=== PATIENT | male | born 1955 ===

== ENCOUNTER 2022-01-28 07:04 | Day surgery (SDC) | payer MEDICARE ==
[~2022-01-28 07:04] MED LIST: LACTATED RINGERS 1,000 ML IV SCH
[2022-01-28 08:00] VITALS: TEMP 97
[2022-01-28] MEDS ORDERED: LIDOCAINE 1% (10MG/ML) FOR IV START INTRADERMA ONE (08:05)
[2022-01-28 08:15] LABS: Glucose,Whole Blood 164 mg/dL (70-110)
[2022-01-28] MEDS ORDERED: MIDAZOLAM 2 MG/2 ML VIAL ONE (08:27)
[2022-01-28] MEDS ORDERED: fentaNYL (PF) 50 MCG/ML 2 ML AMP ONE (08:27)
[2022-01-28] MEDS ORDERED: LACTATED RINGERS 1,000 ML IV SCH (08:30)
--- NOTE | 2022-01-28 09:23 | P.PCN ---
Date of Procedure: 01/28/22 Description of Procedure: Procedure: 1. Lumbar puncture for CSF collection PREOPERATIVE DIAGNOSIS: Normal pressure hydrocephalus, and balance issues POSTOPERATIVE DIAGNOSIS: Normal pressure hydrocephalus, and balance issues SURGEON: Jethro Childs ANESTHESIA: Local with 1% lidocaine, and IV sedation : Versed 2 mg, and fentanyl 100 g Sedation supervision start time: 831 Sedation supervision end time: 916 EBL: None. Specimen removed: 26 mL of total CSF in collecting tube X4 PROCEDURE INDICATION: The patient had history of patient had a history of headache, balance issues. His neurologist recommended for 30 mL of CSF removal, and opening, closing pressures . Consulted for lumbar puncture for CSF collection send it for analysis. PROCEDURE DESCRIPTION: The patient was seen and identified. Risks, benefits, complications, and alternatives were discussed with the patient. The patient agreed to proceed with the procedure and signed the consent, and vital signs were stable. Patient was taken to the procedure area, and time out was completed. The patient was placed in left lateral position on procedure. . The lumbosacral area was prepped and draped in the usual sterile fashion. Critical pause was taken. Vital signs were closely monitored during the procedure. Posterior superior iliac crest landmarks was identified . The midline lumbar space also identified. Approximately at the level of L4-L5 attempted , L3-L4 interspinous space, skin and deeper tissues were localized with 5 mL of 1% lidocaine. Using a 22 gauge 3.5 spinal needle entered into subarachnoid space. Clear CSF came out of the spinal needle. 7-8 mL of CSF fluid collected in each tube 4. Total CSF collected 26 mL. Needle was withdrawn intact, skin was cleansed, and bandages were applied. Opening pressure: 17 cm Closing pressure: 6-7 cm COMPLICATIONS: None. DISPOSITION / PLANS: The patient was placed in a supine position and transferred to the recovery area in a stable condition for observation. Patient was discharged from the recovery room after meeting discharge criteria. Home discharge instructions given to the patient by the staff. The patient was reexamined prior to discharge.
[2022-01-28] MEDS ORDERED: IV FLUID CONTINUATION 1,000 ML IV ONE (09:25)
[2022-01-28 09:28] VITALS: RESP 18
[2022-01-28 09:42] VITALS: BP 129/71; PULSE 62
[2022-01-28 14:42] LABS: Appearance,CSF Clear; CSF Tube Number 4; Nucleated Cells, CSF 0 u/L (0-5); Red Blood Cell,CSF 1 u/L (0-10)
[2022-01-28 15:34] LABS: Glucose,CSF 100 mg/dL (40-70); Total Protein,CSF 109 mg/dL (12-60)
== END 2022-01-28 10:08 | disposition home or self-care (01) ==
LOC: ORPAIN 07:04
DX: G91.2 (Idiopathic) normal pressure hydrocephalus (principal); G31.9 Degenerative disease of nervous system, unspecified; R26.89 Other abnormalities of gait and mobility; I10 Essential (primary) hypertension; E78.00 Pure hypercholesterolemia, unspecified; R51.9 Headache, unspecified; Z91.030 Bee allergy status; Z90.49 Acquired absence of other specified parts of digestive tract; Z98.1 Arthrodesis status
CPT/HCPCS: 88108; 84157; 82945; 89050; 87070; 87205; 62270; J2250; J3010; 87075; 99152; 99153

== ENCOUNTER 2024-02-08 20:39 | Inpatient (IN) | payer MEDICARE ==
--- NOTE | 2024-02-08 22:15 | ED ---
Extremity Problem HPI - General Chief complaint: Extremity Problem,Nontraumatic Stated complaint: R hand swelling Time Seen by Provider: 02/08/24 22:10 Source: patient, EMS, RN notes reviewed Mode of arrival: EMS Limitations: no limitations - History of Present Illness Initial comments: 68-year-old male presenting for medical attention for right wrist redness x 3 days. Patient states he has been having right wrist and right elbow redness, swelling, and warmth. Patient states he was seen at [facility] 3 days ago where they drained his right elbow and discharged him on antibiotics. He states symptoms have been worsening. He admits fever, chills. Denies nausea/vomiting. Past medical history includes hypertension and diabetes. Denies trauma or injury. - Related Data Home Medications Medication Instructions Recorded Confirmed Atorvastatin [Lipitor] 40 mg PO HS 01/27/22 01/27/22 Carbidopa/Levodopa 1 tab PO 0800 01/27/22 01/27/22 [Carbidopa-Levodopa 25-100 Tab] Carbidopa/Levodopa 1 tab PO 1400 01/27/22 01/27/22 [Carbidopa-Levodopa 25-100 Tab] Colestipol HCl 2 tab PO BID 01/27/22 01/27/22 Empagliflozin [Jardiance] 1 tab PO DAILY 01/27/22 01/27/22 Escitalopram [Lexapro] 5 mg PO Q48H 01/27/22 01/27/22 Escitalopram [Lexapro] 10 mg PO Q48H 01/27/22 01/27/22 Insulin Glargine,Hum.rec.anlog 54 unit SQ DAILY 01/27/22 01/27/22 [Basaglar Kwikpen U-100] Losartan Potassium 100 mg PO DAILY 01/27/22 01/27/22 Pantoprazole Sodium 40 mg PO DAILY 01/27/22 01/27/22 Unk Mens Vitamin 1 tab PO DAILY 01/27/22 01/27/22 hydrALAZINE HCL 25 mg PO BID 01/27/22 01/27/22 hydroCHLOROthiazide 50 mg PO DAILY 01/27/22 01/27/22 metFORMIN HCL 1,000 mg PO BID 01/27/22 01/27/22 Allergies Allergy/AdvReac Type Severity Reaction Status Date / Time bee venom protein (honey bee) Allergy Intermediate Swelling Verified 01/28/22 07:58 Review of Systems ROS Statement: Those systems with pertinent positive or pertinent negative responses have been documented in the HPI. ROS Other: All systems not noted in ROS Statement are negative. Past Medical History Past Medical History: Diabetes Mellitus, GERD/Reflux, Hyperlipidemia, Hypertension, Osteoarthritis (OA), Prostate Disorder Additional Past Medical History / Comment(s): parkinsons , arthritis in knees,? hydrocephalus. gait and balance off and some confusion. Bursitis right elbow History of Any Multi-Drug Resistant Organisms: None Reported Past Surgical History: Cholecystectomy Additional Past Surgical History / Comment(s): cervical fusion 4-7, Past Anesthesia/Blood Transfusion Reactions: No Reported Reaction Additional Past Anesthesia/Blood Transfusion Reaction / Comment(s): no blood transfusions Past Psychological History: Depression Smoking Status: Former smoker Past Alcohol Use History: Rare Past Drug Use History: None Reported - Past Family History Father Family Medical History: CVA/TIA, Hypertension Mother Family Medical History: Diabetes Mellitus General Exam Limitations: no limitations General appearance: alert, in no apparent distress Head exam: Present: atraumatic, normocephalic, normal inspection Respiratory exam: Present: normal lung sounds bilaterally. Absent: respiratory distress, wheezes, rales, rhonchi, stridor Cardiovascular Exam: Present: regular rate, normal rhythm, normal heart sounds. Absent: systolic murmur, diastolic murmur, rubs, gallop, clicks Right Shoulder Exam: Present: normal inspection, full ROM. Absent: tenderness, swelling Upper Arm exam: Present: normal inspection, full ROM. Absent: tenderness, swelling Elbow exam: Present: full ROM, tenderness, swelling, erythema. Absent: normal inspection (Diffuse erythema, warmth, edema on posterior right elbow with shallow, purulent ulceration) Forearm Wrist exam: Present: full ROM, tenderness, swelling. Absent: normal inspection (Diffuse erythema, warmth, edema present on dorsal aspect of right wrist. No purulence or fluctuant masses. Noncircumferential.) Vascular: Present: normal capillary refill, radial pulse (Cap refill less than 2 seconds.). Absent: vascular compromise Neurological exam: Present: alert, oriented X3 Psychiatric exam: Present: normal affect, normal mood Skin exam: Present: warm, intact, normal color Course Vital Signs 02/08/24 02/08/24 20:41 22:00 Temperature 100.1 F H Pulse Rate 89 81 Respiratory 20 16 Rate Blood Pressure 150/79 131/81 O2 Sat by Pulse 95 96 Oximetry Medical Decision Making - Medical Decision Making Was pt. sent in by a medical professional or institution (, [employer]HEL, ARTS AND HUMANITIES COUNCIL DIRECTOR, urgent care, hospital, or alf...) When possible be specific @ -Sent by [facility] Did you speak to anyone other than the patient for history (EMS, parent, family, police, friend...)? What history was obtained from this source @ -No Did you review nursing and triage notes (agree or disagree)? Why? @ -I reviewed and agree with nursing and triage notes Were old charts reviewed (outside hosp., previous admission, EMS record, old EKG, old radiological studies, urgent care reports/EKG's, alf records)? Report findings @ -No old charts were reviewed Differential Diagnosis (chest pain, altered mental status, abdominal pain women, abdominal pain men, vaginal bleeding, weakness, fever, dyspnea, syncope, headache, dizziness, GI bleed, back pain, seizure, CVA, palpatations, mental health, musculoskeletal)? @ -Differential Musculoskeletal Muscular strain, contusion, ligament sprain, fracture, arthritis, septic arthritis, bursitis, cellulitis, muscle spasm, nerve compression, DVT, arterial occlusion, herpes zoster, electrolyte abnormality, tumor.... This is not meant to be in all inclusive list EKG interpreted by me (3pts min.). @ -None X-rays interpreted by me (1pt min.). @ -None done CT interpreted by me (1pt min.). @ -None done U/S interpreted by me (1pt. min.). @ -None done What testing was considered but not performed or refused? (CT, X-rays, U/S, labs)? Why? @ -None What meds were considered but not given or refused? Why? @ -None Did you discuss the management of the patient with other professionals (professionals i.e. , [employer], ARTS AND HUMANITIES COUNCIL DIRECTOR, lab, RT, psych nurse, social media content specialist, director of cardiac cath lab, teacher, combat systems officer, case management director)? Give summary @ -Spoke with Dr. Archer who accepts admission at this time for cellulitis with failed outpatient treatment, requesting orthopedic consultation Was smoking cessation discussed for >3mins.? @ -No Was critical care preformed (if so, how long)? @ -No Were there social determinants of health that impacted care today? How? (Homelessness, low income, unemployed, alcoholism, drug addiction, transportat ion, low edu. Level, literacy, decrease access to med. care, half-way, rehab)? @ -No Was there de-escalation of care discussed even if they declined (Discuss DNR or withdrawal of care, Hospice)? DNR status @ -No What co-morbidities impacted this encounter? (DM, HTN, Smoking, COPD, CAD, Cancer, CVA, ARF, Chemo, Hep., AIDS, mental health diagnosis, sleep apnea, morbid obesity)? @ -None Was patient admitted / discharged? Hospital course, mention meds given and route, prescriptions, significant lab abnormalities, going to OR and other pertinent info. @ -Patient was admitted. This is a 68-year-old male sent by [facility] with history of hypertension and diabetes presenting for right wrist and elbow r edness x 3 days. Has been on oral antibiotics for cellulitis with worsening of symptoms. Vital signs remarkable for temperature of 100.1, otherwise within normal limits. On examination, right wrist and elbow are warm, erythematous, and edematous. Full range of motion, neurovascularly intact. Lab work remarkable for white blood cell count of 12 with left shift, lactic 2.9, CRP 4.4. Blood cultures were taken, patient was started on IV cefazolin and IV fluids. I spoke with Dr. Archer who accepts admission at this time for cellulitis with failed outpatient treatment, requesting orthopedic consultation. Patient is agreeable to plan. Case discussed with my ED attending Dr. Mercado. Undiagnosed new problem with uncertain prognosis? @ -No Drug Therapy requiring intensive monitoring for toxicity (Heparin, Nitro, Insulin, Cardizem)? @ -No Were any procedures done? @ -No Diagnosis/symptom? @ -Cellulitis of right wrist and elbow Acute, or Chronic, or Acute on Chronic? @ -Acute Uncomplicated (without systemic symptoms) or Complicated (systemic symptoms)? @ -Complicated Side effects of treatment? @ -No Exacerbation, Progression, or Severe Exacerbation? @ -No Poses a threat to life or bodily function? How? (Chest pain, [place], PR, pneumonia, PE, COPD, DKA, ARF, appy, cholecystitis, CVA, Diverticulitis, Homicidal, Suicidal, threat to staff... and all critical care pts) @ -Yes - Lab Data Result diagrams: 02/08/24 20:49 02/08/24 20:49 Lab Results 02/08/24 02/08/24 02/08/24 Range/Units 20:49 20:49 20:49 WBC 12.1 H (3.8-10.6) k/uL RBC 5.10 (4.30-5.90) m/uL Hgb 13.5 (13.0-17.5) gm/dL Hct 43.6 (39.0-53.0) % MCV 85.4 (80.0-100.0) fL MCH 26.5 (25.0-35.0) pg MCHC 31.1 (31.0-37.0) g/dL RDW 14.8 (11.5-15.5) % Plt Count 320 (150-450) k/uL MPV 8.4 Neutrophils % 75 % Lymphocytes % 14 % Monocytes % 8 % Eosinophils % 1 % Basophils % 0 % Neutrophils # 9.1 H (1.3-7.7) k/uL Lymphocytes # 1.7 (1.0-4.8) k/uL Monocytes # 1.0 (0-1.0) k/uL Eosinophils # 0.2 (0-0.7) k/uL Basophils # 0.0 (0-0.2) k/uL Hypochromasia Moderate Sodium 133 L (137-145) mmol/L Potassium 3.7 (3.5-5.1) mmol/L Chloride 98 (98-107) mmol/L Carbon Dioxide 23 (22-30) mmol/L Anion Gap 12 mmol/L BUN 14 (9-20) mg/dL Creatinine 0.70 (0.66-1.25) mg/dL Est GFR (CKD-EPI)AfAm >90 (>60 ml/min/1.73 sqM) Est GFR (CKD-EPI)NonAf >90 (>60 ml/min/1.73 sqM) Glucose 285 H (74-99) mg/dL Plasma Lactic Acid Juan David 2.9 H* (0.7-2.0) mmol/L Calcium 9.6 (8.4-10.2) mg/dL Total Bilirubin 0.5 (0.2-1.3) mg/dL AST 25 (17-59) U/L ALT 25 (4-49) U/L Alkaline Phosphatase 102 (38-126) U/L C-Reactive Protein 4.4 H (<1.0) mg/dL Total Protein 6.4 (6.3-8.2) g/dL Albumin 3.7 (3.5-5.0) g/dL Disposition Clinical Impression: Cellulitis of right upper extremity Disposition: ADMITTED IP TO THIS [facility] Referrals: Darío Yarbrough MD [Primary Care Provider] - 1-2 days Time of Disposition: 23:12
[2024-02-08] MEDS: SODIUM CHLORIDE 0.9% 1,000 ML IV STA (22:17)
[2024-02-08 22:39] LABS: Basophils % (A) 0 %; Eosinophils # (A) 0.2 k/uL (0-0.7); Eosinophils % (A) 1 %; HCT 43.6 % (39.0-53.0); HGB 13.5 gm/dL (13.0-17.5); Hypochromasia Moderate; Lymphocytes # (A) 1.7 k/uL (1.0-4.8); Lymphocytes % (A) 14 %; MCH 26.5 pg (25.0-35.0); MCHC 31.1 g/dL (31.0-37.0); MCV 85.4 fL (80.0-100.0); Mean Platelet Volume 8.4; Monocytes % (A) 8 %; Neutrophils # (A) 9.1 k/uL (1.3-7.7); Neutrophils % (A) 75 %; Platelet Count 320 k/uL (150-450); RDW 14.8 % (11.5-15.5); WBC 12.1 k/uL (3.8-10.6)
[2024-02-08 22:45] LABS: ALT 25 U/L (4-49); AST 25 U/L (17-59); African American GFR (CKD) >90 (>60 ml/min/1.73 sqM); Albumin 3.7 g/dL (3.5-5.0); Alkaline Phosphatase 102 U/L (38-126); Anion Gap 12 mmol/L; Blood Urea Nitrogen 14 mg/dL (9-20); C Reactive Protein 4.4 mg/dL (<1.0); Calcium 9.6 mg/dL (8.4-10.2); Carbon Dioxide 23 mmol/L (22-30); Chloride 98 mmol/L (98-107); Glucose 285 mg/dL (74-99); Non-African American GFR(CKD) >90 (>60 ml/min/1.73 sqM); Potassium 3.7 mmol/L (3.5-5.1); Sodium 133 mmol/L (137-145); Total Bilirubin 0.5 mg/dL (0.2-1.3); Total Protein 6.4 g/dL (6.3-8.2)
[2024-02-08] MEDS ORDERED: NALOXONE 0.4 MG/ML 1 ML VIAL IV PRN (23:12)
[2024-02-08] MEDS ORDERED: ONDANSETRON 4 MG/2 ML VIAL IVP PRN (23:12)
[2024-02-08] MEDS: SODIUM CHLORIDE 0.9% 1,000 ML IV SCH (23:45)
[2024-02-08] MEDS: ACETAMINOPHEN TAB 325 MG TAB PO PRN (23:49)
[2024-02-09 01:30] LABS: Glucose,Whole Blood 171 mg/dL (70-110)
--- NOTE | 2024-02-09 13:06 | P.CNOR ---
History of Present Illness - [facility] Consult date: 02/09/24 Consult reason: joint pain (Right elbow pain, swelling) History of present illness: This is a 68-year-old male with history of injury to his right elbow a couple of weeks ago when he fell. He resides in an extended care facility and states that he fell on the elbow and had a large abrasion. He then developed some swelling to the elbow. The elbow was aspirated in the emergency department at [facility] Last week the patient was then admitted here at [facility]. We are consulted for thick evaluation of the right elbow. He had a temp of 100.1 last evening. I blood cell count was elevated at 12.1. Past Medical History Past Medical History: Diabetes Mellitus, GERD/Reflux, Hyperlipidemia, Hypertension, Osteoarthritis (OA), Prostate Disorder Additional Past Medical History / Comment(s): parkinsons , arthritis in knees,? hydrocephalus. gait and balance off and some confusion. Bursitis right elbow History of Any Multi-Drug Resistant Organisms: None Reported Past Surgical History: Cholecystectomy Additional Past Surgical History / Comment(s): cervical fusion 4-7, Past Anesthesia/Blood Transfusion Reactions: No Reported Reaction Additional Past Anesthesia/Blood Transfusion Reaction / Comm: no blood transfusions Past Psychological History: Depression Additional Psychological History / Comment(s): on meds Smoking Status: Never smoker Past Alcohol Use History: Rare Additional Past Alcohol Use History / Comment(s): 2ppd started at 15ys old. smoked for 30 yrs Past Drug Use History: None Reported - Past Family History Father Family Medical History: CVA/TIA, Hypertension Mother Family Medical History: Diabetes Mellitus Additional Family Medical History / Comment(s): parkinsons Medications and Allergies Home Medications Medication Instructions Recorded Confirmed Type Atorvastatin [Lipitor] 40 mg PO HS 01/27/22 02/09/24 History Carbidopa/Levodopa 1 tab PO Q8H 01/27/22 02/09/24 History [Carbidopa-Levodopa 25-100 Tab] Empagliflozin [Jardiance] 10 mg PO DAILY 01/27/22 02/09/24 History Escitalopram [Lexapro] 10 mg PO HS 01/27/22 02/09/24 History Insulin Glargine,Hum.rec.anlog 54 unit SQ DAILY 01/27/22 02/09/24 History [Basaglar Kwikpen U-100] Losartan Potassium 100 mg PO DAILY 01/27/22 02/09/24 History Pantoprazole Sodium 40 mg PO DAILY 01/27/22 02/09/24 History hydrALAZINE HCL 25 mg PO BID 01/27/22 02/09/24 History 0.9 % Sodium Chloride [Sodium 10 ml IV Q12H 02/09/24 02/09/24 History Chloride Flush] 0.9 % Sodium Chloride [Sodium 10 ml IV Q12H PRN 02/09/24 02/09/24 History Chloride Flush] Acetaminophen [Tylenol 8 Hour] 650 mg PO Q6H PRN 02/09/24 02/09/24 History Amoxic-Pot Clav 875-125Mg 1 tab PO Q12HR 02/09/24 02/09/24 History [Augmentin 875-125] DULoxetine HCL [Cymbalta] 30 mg PO DAILY 02/09/24 02/09/24 History Doxycycline Monohydrate 100 mg PO BID 02/09/24 02/09/24 History EPINEPHrine (Auto Inject) [Epipen] 0.3 mg IM ONCE PRN 02/09/24 02/09/24 History L.acidoph,Paracasei, B.lactis 1 cap PO HS 02/09/24 02/09/24 History [Probiotic] Naloxone HCl [Narcan] 4 mg NASAL ONCE PRN 02/09/24 02/09/24 History Nicotine 14Mg/24Hr Patch [Habitrol 1 patch TRANSDERM DAILY 02/09/24 02/09/24 History 14Mg/24Hr Patch] QUEtiapine [SEROquel] 50 mg PO HS 02/09/24 02/09/24 History Tamsulosin HCl [Flomax] 0.4 mg PO DAILY 02/09/24 02/09/24 History cefTRIAXone SODIUM [Ceftriaxone] 2 gm IV Q24H 02/09/24 02/09/24 History hydroCHLOROthiazide [Hydrodiuril] 25 mg PO DAILY 02/09/24 02/09/24 History metFORMIN HCL [Glucophage] 1,000 mg PO BID 02/09/24 02/09/24 History oxyCODONE HCL [oxyCODONE HCL (IR)] 5 mg PO Q6H PRN 02/09/24 02/09/24 History Allergies Allergy/AdvReac Type Severity Reaction Status Date / Time bee venom protein (honey bee) Allergy Intermediate Swelling Verified 02/09/24 09:04 Physical Examination Exam of the right elbow reveals some fluctuance at the olecranon bursa. There is mild erythema. There is a healing abrasion noted to the elbow. There is no redness or swelling into the forearm, wrist or hand. He has full extension and flexion past 90 of the elbow. He has full forearm rotation. Neurovascular status to the upper extremity is intact. Results - Labs Labs: Abnormal Lab Results - Last 24 Hours (Table) 02/08/24 02/08/24 02/08/24 Range/Units 20:49 20:49 20:49 WBC 12.1 H (3.8-10.6) k/uL Neutrophils # 9.1 H (1.3-7.7) k/uL Sodium 133 L (137-145) mmol/L Glucose 285 H (74-99) mg/dL POC Glucose (mg/dL) (70-110) mg/dL Plasma Lactic Acid Juan David 2.9 H* (0.7-2.0) mmol/L C-Reactive Protein 4.4 H (<1.0) mg/dL 02/09/24 Range/Units 01:27 WBC (3.8-10.6) k/uL Neutrophils # (1.3-7.7) k/uL Sodium (137-145) mmol/L Glucose (74-99) mg/dL POC Glucose (mg/dL) 171 H (70-110) mg/dL Plasma Lactic Acid Juan David (0.7-2.0) mmol/L C-Reactive Protein (<1.0) mg/dL H & H 02/08/24 Range/Units 20:49 Hgb 13.5 (13.0-17.5) gm/dL Hct 43.6 (39.0-53.0) % Result Diagrams: 02/08/24 20:49 02/08/24 20:49 Assessment and Plan (1) Olecranon bursitis, right elbow Current Visit: Yes Status: Acute Code(s): M70.21 - OLECRANON BURSITIS, RIGHT ELBOW SNOMED Code(s): 270019419018984 (2) Cellulitis of right upper extremity Current Visit: Yes Status: Acute Code(s): L03.113 - CELLULITIS OF RIGHT UPPER LIMB SNOMED Code(s): 49011373814630288 Plan: The clinical findings are discussed with the patient. He is to continue IV antibiotics and warm compresses to the right elbow. His symptoms are improving on IV antibiotics. We will hold off on any surgical intervention at this time. We will continue to follow peripherally.
--- NOTE | 2024-02-09 16:09 | P.HPIM ---
History of Present Illness H&P Date: 02/09/24 Patient is a 68-year-old male who presents with right elbow swelling and pain. He states that he has been having difficulty with balance/weakness and recently fell. Since his fall he has had right elbow swelling and erythemahe went to [facility] (according to his ) the other day where they drained it and prescribed outpatient antibiotics. Since then the elbow has not improved so he was admitted here. He rates the pain a 6/10. He denies chest pain, shortness of breath, abdominal pain. He endorses nonbloody diarrhea since beginning the antibiotics from [facility]. WBCs 12.1, lactic acid 2.9, CRP 4.4 Afebrile, hypertensive. ED documentation reviewed. Unable to obtain records from [facility]. Review of systems: Pertinent positives and negatives as discussed in HPI, a complete review of systems was performed and all other systems are negative. Social history: Tobacco: chew tobacco occasional Alcohol: denies Recreational drugs: denies Travel: denies Occupation: retired Physical examination: Vital signs are stable. General: No acute distress. HEENT: Head exam is unremarkable. Lungs: Bilateral breath sounds present; no rhonchi, wheezes, or rales. Heart: Rate and rhythm are regular. S1S2 present. No murmurs/rubs/gallops. Abdomen: Nontender. Extremities: No edema present in the lower extremities. Right elbow: Edema of the olecranon bursa, healing abrasion present, mild swelling of the forearm, wrist, hand, full range of motion of the elbow. Assessment/Plan: #. Right elbow cellulitis Maintain IV ceftriaxone. Consult infectious disease. #. Hypertension Continue #. Diabetes mellitus type 2 Insulin sliding scale #. Non-bloody diarrhea Obtain C. difficile PCR. #. Hyperlipidemia Continue #. Parkinson's Continue carbidopalevodopa. DVT prophylaxis: Lovenox Chronic conditions: HTN, DM2, HLD, Parkinson's The patient is admitted with an anticipated plus than 2 midnight stay for evaluation of right elbow pain and swelling. CODE STATUS: Full code Discussed with: Patient Anticipated discharge place: [facility] Dr. Dave MD I have performed a history and physical examination and medical decision making of this patient, discussed the same with the the resident, and agree with the assessment and plan as written. I performed brief physical exam. Past Medical History Past Medical History: Diabetes Mellitus, GERD/Reflux, Hyperlipidemia, Hypertension, Osteoarthritis (OA), Prostate Disorder Additional Past Medical History / Comment(s): parkinsons , arthritis in knees,? hydrocephalus. gait and balance off and some confusion. Bursitis right elbow History of Any Multi-Drug Resistant Organisms: None Reported Past Surgical History: Cholecystectomy Additional Past Surgical History / Comment(s): cervical fusion 4-7, Past Anesthesia/Blood Transfusion Reactions: No Reported Reaction Additional Past Anesthesia/Blood Transfusion Reaction / Comment(s): no blood transfusions Smoking Status: Never smoker - Past Family History Father Family Medical History: CVA/TIA, Hypertension Mother Family Medical History: Diabetes Mellitus Medications and Allergies Home Medications Medication Instructions Recorded Confirmed Type Atorvastatin [Lipitor] 40 mg PO HS 01/27/22 02/09/24 History Carbidopa/Levodopa 1 tab PO Q8H 01/27/22 02/09/24 History [Carbidopa-Levodopa 25-100 Tab] Empagliflozin [Jardiance] 10 mg PO DAILY 01/27/22 02/09/24 History Escitalopram [Lexapro] 10 mg PO HS 01/27/22 02/09/24 History Insulin Glargine,Hum.rec.anlog 54 unit SQ DAILY 01/27/22 02/09/24 History [Basaglar Kwikpen U-100] Losartan Potassium 100 mg PO DAILY 01/27/22 02/09/24 History Pantoprazole Sodium 40 mg PO DAILY 01/27/22 02/09/24 History hydrALAZINE HCL 25 mg PO BID 01/27/22 02/09/24 History 0.9 % Sodium Chloride [Sodium 10 ml IV Q12H 02/09/24 02/09/24 History Chloride Flush] 0.9 % Sodium Chloride [Sodium 10 ml IV Q12H PRN 02/09/24 02/09/24 History Chloride Flush] Acetaminophen [Tylenol 8 Hour] 650 mg PO Q6H PRN 02/09/24 02/09/24 History Amoxic-Pot Clav 875-125Mg 1 tab PO Q12HR 02/09/24 02/09/24 History [Augmentin 875-125] DULoxetine HCL [Cymbalta] 30 mg PO DAILY 02/09/24 02/09/24 History Doxycycline Monohydrate 100 mg PO BID 02/09/24 02/09/24 History EPINEPHrine (Auto Inject) [Epipen] 0.3 mg IM ONCE PRN 02/09/24 02/09/24 History L.acidoph,Paracasei, B.lactis 1 cap PO HS 02/09/24 02/09/24 History [Probiotic] Naloxone HCl [Narcan] 4 mg NASAL ONCE PRN 02/09/24 02/09/24 History Nicotine 14Mg/24Hr Patch [Habitrol 1 patch TRANSDERM DAILY 02/09/24 02/09/24 History 14Mg/24Hr Patch] QUEtiapine [SEROquel] 50 mg PO HS 02/09/24 02/09/24 History Tamsulosin HCl [Flomax] 0.4 mg PO DAILY 02/09/24 02/09/24 History cefTRIAXone SODIUM [Ceftriaxone] 2 gm IV Q24H 02/09/24 02/09/24 History hydroCHLOROthiazide [Hydrodiuril] 25 mg PO DAILY 02/09/24 02/09/24 History metFORMIN HCL [Glucophage] 1,000 mg PO BID 02/09/24 02/09/24 History oxyCODONE HCL [oxyCODONE HCL (IR)] 5 mg PO Q6H PRN 02/09/24 02/09/24 History Allergies Allergy/AdvReac Type Severity Reaction Status Date / Time bee venom protein (honey bee) Allergy Intermediate Swelling Verified 02/09/24 09:04 Physical Exam Vitals: Vital Signs Temp Pulse Pulse Resp BP BP Pulse Ox 02/09/24 02:25 98.5 F 75 18 148/71 95 02/09/24 02:03 98.1 F 02/09/24 02:02 73 19 153/82 98 02/09/24 01:32 76 20 153/81 96 02/09/24 00:51 98.9 F 02/08/24 23:59 81 20 151/78 97 02/08/24 23:00 84 15 117/70 98 02/08/24 22:00 81 16 131/81 96 02/08/24 20:41 100.1 F H 89 20 150/79 95 Intake and Output 02/08/24 02/08/24 02/09/24 14:59 22:59 06:59 Intake Total 240 Balance 240 Intake: Oral 240 Other: # Voids 2 Weight 88.36 kg 88.36 kg Results CBC & Chem 7: 02/10/24 07:52 02/10/24 07:52 Labs: Abnormal Lab Results - Last 24 Hours (Table) 02/08/24 02/08/24 02/08/24 Range/Units 20:49 20:49 20:49 WBC 12.1 H (3.8-10.6) k/uL Neutrophils # 9.1 H (1.3-7.7) k/uL Sodium 133 L (137-145) mmol/L Glucose 285 H (74-99) mg/dL POC Glucose (mg/dL) (70-110) mg/dL Plasma Lactic Acid Juan David 2.9 H* (0.7-2.0) mmol/L C-Reactive Protein 4.4 H (<1.0) mg/dL 02/09/24 Range/Units 01:27 WBC (3.8-10.6) k/uL Neutrophils # (1.3-7.7) k/uL Sodium (137-145) mmol/L Glucose (74-99) mg/dL POC Glucose (mg/dL) 171 H (70-110) mg/dL Plasma Lactic Acid Juan David (0.7-2.0) mmol/L C-Reactive Protein (<1.0) mg/dL
[2024-02-09] MEDS: CARBIDOPA-LEVODOPA 25-100 MG 1 EACH TAB PO SCH (17:08)
[2024-02-09] MEDS: LOSARTAN 50 MG TAB PO SCH (17:09)
[2024-02-09] MEDS: TAMSULOSIN 0.4 MG CAP.ER.24H PO SCH (17:09)
[2024-02-09] MEDS: hydroCHLOROthiazide 25 MG TAB PO SCH (17:10)
--- NOTE | 2024-02-09 19:07 | XR ---
EXAMINATION TYPE: XR shoulder complete LT DATE OF EXAM: 02/09/2024 CLINICAL HISTORY: pain COMPARISON: NONE TECHNIQUE: Three views of the left shoulder are obtained. FINDINGS: There is no acute fracture/dislocation evident. The acromioclavicular and glenohumeral tutu int spaces appear within normal limits. The visualized ribs are intact and unremarkable. IMPRESSION: 1. There is no acute fracture or dislocation. ICD 10 NO FRACTURE, INITIAL EVALUATION
--- NOTE | 2024-02-09 19:56 | CT ---
EXAMINATION TYPE: CT brain wo con DATE OF EXAM: 02/09/2024 COMPARISON: None HISTORY: fell CT DLP: [address] of the brain was performed. The ventricles, basal cisterns and sulci overlying the cerebral convexities demonstrate moderate enla rgement. There is no evidence for intracranial hemorrhage or sulcal effacement. There is decreased attenuation about the periventricular white matter and deep white matter of both c erebral hemispheres, compatible with chronic small vessel ischemia. Differential diagnosis does inclu de demyelination. No mass effects are seen.No midline shift. Osseous calvarium is intact. If symptoms persist consider MRI. IMPRESSION: 1. Age related atrophic and chronic small vessel ischemic change without acute intracranial process s een at this time.
[2024-02-09] MEDS: ENOXAPARIN 40 MG/0.4 ML SYRINGE SQ SCH (20:33)
[2024-02-09] MEDS: QUEtiapine 50 MG TAB PO SCH (20:34)
[2024-02-09] MEDS: hydrALAZINE HCL 25 MG TAB PO SCH (20:34)
[2024-02-09] MEDS: ESCITALOPRAM 10 MG TAB PO SCH (20:35)
[2024-02-09] MEDS: ATORVASTATIN 40 MG TAB PO SCH (20:35)
--- NOTE | 2024-02-09 22:36 | P.CONS ---
History of Present Illness - Reason for Consult Consult date: 02/09/24 Right elbow infection not healing Requesting physician: Maria D Carlson - Chief Complaint Right elbow pain and swelling x days - History of Present Illness Patient is a 68-year-old male with a past medical history significant for diabetes mellitus hypertension hyperlipidemia reflux osteoarthritis prostate disorder in this patient apparently was recently admitted at [facility] from 01/30/2024 till 02/02/2024 with the patient has been treated for UTI he was also diagnosed with a right elbow olecranon bursitis status post bedside aspiration by the hospitalist and the patient was subsequent discharged home on oral Augmentin and doxycycline patient now presenting to [facility] ER complaining of worsening pain to the right elbow area patient describing the pain to the right elbow to be sharp almost 10 out of 10 in severity by the time he presented to hospital with associated swelling and redness but denies having any drainage patient mention he has been taking his antibiotic as advised patient on presentation to the hospital did have low-grade fever 100.1 F patient was not tachycardic hypotensive or hypoxic he did have white count of 12.1 with a left shift creatinine 0.70 lactic acid 2.9 liver isms are normal patient did receive a dose of cefazolin and admitted to hospital infectious he was consulted for further management of antibiotic therapy patient has been eval by orthopedics not recommending any surgical intervention at this point Review of Systems Positive point and negatives has been mentioned in the HPI, complete review of systems was performed and all other systems are negative Past Medical History Past Medical History: Diabetes Mellitus, GERD/Reflux, Hyperlipidemia, Hypertension, Osteoarthritis (OA), Prostate Disorder Additional Past Medical History / Comment(s): parkinsons , arthritis in knees,? hydrocephalus. gait and balance off and some confusion. Bursitis right elbow History of Any Multi-Drug Resistant Organisms: None Reported Past Surgical History: Cholecystectomy Additional Past Surgical History / Comment(s): cervical fusion 4-7, Past Anesthesia/Blood Transfusion Reactions: No Reported Reaction Additional Past Anesthesia/Blood Transfusion Reaction / Comm: no blood transfusi ons Smoking Status: Never smoker - Past Family History Father Family Medical History: CVA/TIA, Hypertension Mother Family Medical History: Diabetes Mellitus Additional Family Medical History / Comment(s): parkinsons Medications and Allergies Home Medications Medication Instructions Recorded Confirmed Type Atorvastatin [Lipitor] 40 mg PO HS 01/27/22 02/09/24 History Carbidopa/Levodopa 1 tab PO Q8H 01/27/22 02/09/24 History [Carbidopa-Levodopa 25-100 Tab] Empagliflozin [Jardiance] 10 mg PO DAILY 01/27/22 02/09/24 History Escitalopram [Lexapro] 10 mg PO HS 01/27/22 02/09/24 History Insulin Glargine,Hum.rec.anlog 54 unit SQ DAILY 01/27/22 02/09/24 History [Basaglar Kwikpen U-100] Losartan Potassium 100 mg PO DAILY 01/27/22 02/09/24 History Pantoprazole Sodium 40 mg PO DAILY 01/27/22 02/09/24 History hydrALAZINE HCL 25 mg PO BID 01/27/22 02/09/24 History 0.9 % Sodium Chloride [Sodium 10 ml IV Q12H 02/09/24 02/09/24 History Chloride Flush] 0.9 % Sodium Chloride [Sodium 10 ml IV Q12H PRN 02/09/24 02/09/24 History Chloride Flush] Acetaminophen [Tylenol 8 Hour] 650 mg PO Q6H PRN 02/09/24 02/09/24 History Amoxic-Pot Clav 875-125Mg 1 tab PO Q12HR 02/09/24 02/09/24 History [Augmentin 875-125] DULoxetine HCL [Cymbalta] 30 mg PO DAILY 02/09/24 02/09/24 History Doxycycline Monohydrate 100 mg PO BID 02/09/24 02/09/24 History EPINEPHrine (Auto Inject) [Epipen] 0.3 mg IM ONCE PRN 02/09/24 02/09/24 History L.acidoph,Paracasei, B.lactis 1 cap PO HS 02/09/24 02/09/24 History [Probiotic] Naloxone HCl [Narcan] 4 mg NASAL ONCE PRN 02/09/24 02/09/24 History Nicotine 14Mg/24Hr Patch [Habitrol 1 patch TRANSDERM DAILY 02/09/24 02/09/24 History 14Mg/24Hr Patch] QUEtiapine [SEROquel] 50 mg PO HS 02/09/24 02/09/24 History Tamsulosin HCl [Flomax] 0.4 mg PO DAILY 02/09/24 02/09/24 History cefTRIAXone SODIUM [Ceftriaxone] 2 gm IV Q24H 02/09/24 02/09/24 History hydroCHLOROthiazide [Hydrodiuril] 25 mg PO DAILY 02/09/24 02/09/24 History metFORMIN HCL [Glucophage] 1,000 mg PO BID 02/09/24 02/09/24 History oxyCODONE HCL [oxyCODONE HCL (IR)] 5 mg PO Q6H PRN 02/09/24 02/09/24 History Allergies Allergy/AdvReac Type Severity Reaction Status Date / Time bee venom protein (honey bee) Allergy Intermediate Swelling Verified 02/09/24 09:04 Physical Exam Vitals: Vital Signs Temp Pulse Pulse Pulse Resp BP BP 02/09/24 08:00 18 02/09/24 07:00 97.7 F 70 18 172/82 02/09/24 02:25 98.5 F 75 18 148/71 02/09/24 02:03 98.1 F 02/09/24 02:02 73 19 153/82 02/09/24 01:32 76 20 153/81 02/09/24 00:51 98.9 F 02/08/24 23:59 81 20 151/78 02/08/24 23:00 84 15 117/70 02/08/24 22:00 81 16 131/81 02/08/24 20:41 100.1 F H 89 20 150/79 Pulse Ox 02/09/24 08:00 02/09/24 07:00 97 02/09/24 02:25 95 02/09/24 02:03 02/09/24 02:02 98 02/09/24 01:32 96 02/09/24 00:51 02/08/24 23:59 97 02/08/24 23:00 98 02/08/24 22:00 96 02/08/24 20:41 95 Intake and Output 02/08/24 02/09/24 02/09/24 22:59 06:59 14:59 Intake Total 240 120 Output Total 300 Balance 240 -180 Intake: Oral 240 120 Output: Urine 300 Other: Voiding Method Urinal Diaper # Voids 2 1 # Bowel Movements 2 Weight 88.36 kg 88.36 kg GENERAL DESCRIPTION: Elderly male lying in bed, no distress. No tachypnea or accessory muscle of respiration use. HEENT: Shows Pallor , no scleral icterus. Oral mucous membrane is dry. No pharyngeal erythema or thrush NECK: Trachea central, no thyromegaly. LUNGS: Unlabored breathing. Clear to auscultation anteriorly. No wheeze or crackle. HEART: S1, S2, regular rate and rhythm. No loud murmur ABDOMEN: Soft, no tenderness , guarding or rigidity, no organomegaly EXTREMITIES: Right elbow did have swelling redness which is warm and tender to touch SKIN: No rash, no masses palpable. NEUROLOGICAL: The patient is awake, alert, oriented x3, mood and affect normal. Results CBC & Chem 7: 02/08/24 20:49 02/08/24 20:49 Labs: Abnormal Lab Results - Last 24 Hours (Table) 02/08/24 02/08/24 02/08/24 Range/Units 20:49 20:49 20:49 WBC 12.1 H (3.8-10.6) k/uL Neutrophils # 9.1 H (1.3-7.7) k/uL Sodium 133 L (137-145) mmol/L Glucose 285 H (74-99) mg/dL POC Glucose (mg/dL) (70-110) mg/dL Plasma Lactic Acid Juan David 2.9 H* (0.7-2.0) mmol/L C-Reactive Protein 4.4 H (<1.0) mg/dL 02/09/24 Range/Units 01:27 WBC (3.8-10.6) k/uL Neutrophils # (1.3-7.7) k/uL Sodium (137-145) mmol/L Glucose (74-99) mg/dL POC Glucose (mg/dL) 171 H (70-110) mg/dL Plasma Lactic Acid Juan David (0.7-2.0) mmol/L C-Reactive Protein (<1.0) mg/dL Assessment and Plan (1) Cellulitis of right upper extremity Current Visit: Yes Status: Acute Code(s): L03.113 - CELLULITIS OF RIGHT UPPER LIMB SNOMED Code(s): 51331574157809188 (2) Olecranon bursitis, right elbow Current Visit: Yes Status: Acute Code(s): M70.21 - OLECRANON BURSITIS, RIGHT ELBOW SNOMED Code(s): 504981996179040 (3) Failure of outpatient treatment Current Visit: Yes Status: Acute Code(s): Z78.9 - OTHER SPECIFIED HEALTH STATUS SNOMED Code(s): 415023129 (4) MSSA (methicillin susceptible Staphylococcus aureus) infection Current Visit: Yes Status: Acute Code(s): A49.01 - METHICILLIN SUSCEP STAPH INFECTION, UNSP SITE SNOMED Code(s): 391003346 Plan: 1patient presented to hospital with right elbow pain swelling redness which is likely related to right elbow olecranon bursitis that has been drained at [facility] during his admission from 01/29 through 02/02/2024 I was able to review the culture and they have been growing MSSA patient seem to have failed outpatient oral antibiotic therapy 2-we will start the patient on cefazolin 2 g every 8 hour 3-will benefit from surgical I&D We will follow on clinical condition and cultures to further adjust medication if needed Thank you for this consultation we will follow the patient along with you Dictation was produced using [employer] dictation software. please excuse any grammatical, word or spelling errors.
[2024-02-10] MEDS: PANTOPRAZOLE 40 MG TABLET PO SCH (06:10)
[2024-02-10 08:19] LABS: Glucose,Whole Blood 170 mg/dL (70-110)
[2024-02-10] MEDS: DULoxetine HCL 30 MG CAPSULE.DR PO SCH (08:40)
[2024-02-10] MEDS: DAPAGLIFLOZIN PROPANEDIOL 5 MG TABLET PO SCH (08:40)
[2024-02-10 10:20] LABS: Basophils # (A) 0.05 X 10*3/uL (0.00-0.10); Basophils % (A) 0.5 %; Eosinophils # (A) 0.36 X 10*3/uL (0.04-0.35); Eosinophils % (A) 3.5 %; HCT 46.7 % (39.6-50.0); HGB 14.9 g/dL (13.0-17.0); Lymphocytes # (A) 2.04 X 10*3/uL (0.90-5.00); Lymphocytes % (A) 19.7 %; MCH 26.4 pg (27.0-32.0); MCHC 31.9 g/dL (32.0-37.0); MCV 82.7 FL (80.0-97.0); Mean Platelet Volume 11.1 FL (9.5-12.2); Monocytes # (A) 0.74 X 10*3/uL (0.20-1.00); Monocytes % (A) 7.2 %; NRBC Per 100 WBC 0 X 10*3/uL (0.00-0.01); Neutrophils # (A) 7.11 X 10*3/uL (1.80-7.70); Neutrophils % (A) 68.8 %; Platelet Count 321 X 10*3/uL (140-440); RBC 5.65 X 10*6/uL (4.40-5.60); RDW 14.6 % (11.5-14.5); WBC 10.33 X 10*3/uL (4.50-10.00)
[2024-02-10 11:00] LABS: ALT 25 U/L (10-49); AST 31 U/L (14-35); Albumin 4.1 g/dL (3.8-4.9); Albumin/Globulin Ratio 1.32 Ratio (1.60-3.17); Alkaline Phosphatase 129 U/L (41-126); BUN/Creat Ratio 13.86 Ratio (12.00-20.00); Blood Urea Nitrogen 9.7 mg/dL (9.0-27.0); Carbon Dioxide 25.6 mmol/L (21.6-31.8); Chloride 103 mmol/L (96-109); Globulin 3.1 g/dL (1.6-3.3); Glucose 193 mg/dL (70-110); Potassium 4.1 mmol/L (3.5-5.5); Sodium 141 mmol/L (135-145); Total Bilirubin 0.3 mg/dL (0.3-1.2); Total Protein 7.2 g/dL (6.2-8.2)
--- NOTE | 2024-02-10 12:05 | P.PN ---
Subjective Progress Note Date: 02/10/24 Patient is a 68-year-old male who presents with right elbow swelling and pain. He states that he has been having difficulty with balance/weakness and recently fell. Since his fall he has had right elbow swelling and erythemahe went to [facility] (according to his ) the other day where they drained it and prescribed outpatient antibiotics. Since then the elbow has not improved so he was admitted here. He rates the pain a 6/10. He denies chest pain, shortness of breath, abdominal pain. He endorses nonbloody diarrhea since beginning the antibiotics from [facility]. WBCs 12.1, lactic acid 2.9, CRP 4.4 Afebrile, hypertensive. 02/09. Patient seen and examined lying in bed. Per infectious disease consult: Patient had right elbow olecranon bursitis drained bedside at [facility]; cultures grew MSSA but patient seems to have failed outpatient oral antibiotic therapy so he was started on IV cefazolin 2 g every 8 hours. Patient denies chest pain, shortness of breath. Continues to endorse full range of motion. Patient remains afebrile. WBCs 10.33 ROS reviewed. Pertinent positives and negatives discussed above, a complete review of systems was performed and all the other systems were negative. Vital signs are stable. General: No acute distress. HEENT: Head exam is unremarkable. Lungs: Bilateral breath sounds present; no rhonchi, wheezes, or rales. Heart: Rate and rhythm are regular. Abdomen: Nontender. Extremities: No edema present. Assessment/Plan: Cellulitis of the right elbow Right olecranon bursitis Continue IV cefazolin 2 g every 8 hours Monitor CBC/BMP Pain control Hypertension Continue hydralazine Continue hydrochlorothiazide Continue Cozaar Diabetes mellitus type 2 Continue Farxiga Insulin sliding scale Hyperlipidemia Continue Lipitor Parkinson's Continue carbidopa/levodopa discharge Continue Cymbalta Continue Seroquel Continue Lexapro Dr. Dave MD I have performed a history and physical examination and medical decision making of this patient, discussed the same with the the resident, and agree with the assessment and plan as written. I performed brief physical exam. Objective - Vital Signs Vital signs: Vital Signs Temp 97.7 F 02/10/24 02:00 Pulse 75 02/10/24 02:00 Resp 18 02/10/24 02:00 BP 123/68 02/10/24 02:00 Pulse Ox 96 02/10/24 02:00 FiO2 Intake & Output 02/09/24 02/10/24 02/10/24 18:59 06:59 18:59 Intake Total 577 480 Output Total 500 Balance 77 480 Intake: Oral 577 480 Output: Urine 500 Other: Voiding Method Urinal Urinal Diaper Diaper # Voids 1 3 # Bowel Movements 1 0 - Labs CBC & Chem 7: 02/11/24 02:52 02/11/24 02:52 Labs: Microbiology - Last 24 Hours (Table) 02/08/24 22:32 Blood Culture - Preliminary Blood 02/08/24 22:17 Blood Culture - Preliminary Blood
--- NOTE | 2024-02-10 14:15 | P.PN ---
Subjective Progress Note Date: 02/10/24 Principal diagnosis: Right elbow pain. Olecranon bursitis right elbow. This is a 68-year-old male with history of injury to his right elbow a couple of weeks ago when he fell. He resides in an extended care facility and states that he fell on the elbow and had a large abrasion. He then developed some swelling to the elbow. The elbow was aspirated in the emergency department at [facility] Last week the patient was then admitted here at [facility]. We are consulted for orthopedic evaluation of the right elbow. He had a temp of 100.1 last evening. I blood cell count was elevated at 12.1. 02/10/2024: The patient is evaluated at bedside today with Dr. Gomez. The patient has no new complaints or concerns today. He states that his pain is improving. He fee ls that his swelling is improving to the right upper extremity. Vital signs are stable. He is currently afebrile. White blood cell count is coming down. Objective - Vital Signs Vital signs: Vital Signs Temp 98.4 F 02/10/24 07:00 Pulse 81 02/10/24 07:00 Resp 18 02/10/24 07:00 BP 162/77 02/10/24 07:00 Pulse Ox 98 02/10/24 07:00 FiO2 Intake & Output 02/09/24 02/10/24 02/10/24 18:59 06:59 18:59 Intake Total 577 480 240 Output Total 500 Balance 77 480 240 Intake: Oral 577 480 240 Output: Urine 500 Other: Voiding Method Urinal Urinal Diaper Diaper Diaper # Voids 1 3 # Bowel Movements 1 0 - Exam This is a pleasant 68-year-old male in no acute distress. He is alert and oriented x 3. Exam of the right upper extremity reveals that the swelling to the elbow and forearm are improved. He has no swelling to the wrist or hand. He has full extension and flexion of the elbow as well as full forearm rotation without difficulty or pain. There is slight fluctuance to the olecranon bursa. There is minimal erythema. The erythema has subsided since yesterday. - Labs CBC & Chem 7: 02/10/24 07:52 02/10/24 07:52 Labs: Abnormal Lab Results - Last 24 Hours (Table) 02/10/24 02/10/2424 Range/Units 07:52 07:52 08:17 WBC 10.33 H (4.50-10.00) X 10*3/uL RBC 5.65 H (4.40-5.60) X 10*6/uL MCH 26.4 L (27.0-32.0) pg MCHC 31.9 L (32.0-37.0) g/dL RDW 14.6 H (11.5-14.5) % Eosinophils # 0.36 H (0.04-0.35) X 10*3/uL Anion Gap 12.40 H (4.00-12.00) mmol/L Glucose 193 H (70-110) mg/dL POC Glucose (mg/dL) 170 H (70-110) mg/dL Alkaline Phosphatase 129 H (41-126) U/L Albumin/Globulin Ratio 1.32 L (1.60-3.17) Ratio Microbiology - Last 24 Hours (Table) 02/08/24 22:32 Blood Culture - Preliminary Blood 02/08/24 22:17 Blood Culture - Preliminary Blood Assessment and Plan (1) Olecranon bursitis, right elbow Current Visit: Yes Status: Acute Code(s): M70.21 - OLECRANON BURSITIS, RIGHT ELBOW SNOMED Code(s): 150072364287019 (2) Cellulitis of right upper extremity Current Visit: Yes Status: Acute Code(s): L03.113 - CELLULITIS OF RIGHT UPPER LIMB SNOMED Code(s): 69441091441579753 Plan: The clinical findings are discussed with the patient. He is to continue IV antibiotics and warm compresses to the right elbow. His symptoms are improving on IV antibiotics. Dr. Gomez discussed with the patient that there is no surgical indication at this time since he is improving. We discussed the risks of surgical debridement including prolonged drainage of the wound and other wound complications. The patient is to follow-up in our office 1 week after discharge.
--- NOTE | 2024-02-10 16:01 | P.PN ---
Subjective Progress Note Date: 02/10/24 Principal diagnosis: Reason for follow-up is right elbow olecranon bursitis Patient is a 68-year-old male with a past medical history significant for diabetes mellitus hypertension hyperlipidemia reflux osteoarthritis prostate disorder in this patient apparently was recently admitted at [facility] from 01/30/2024 till 02/02/2024 with the patient has been treated for UTI he was also diagnosed with a right elbow olecranon bursitis status post bedside aspiration by the hospitalist, has not been readmitted to hospital with worsening right olecranon bursitis failing outpatient or antibiotic therapy. On today's evaluation that is 02/10/2024,the patient remains to be afebrile, patient is on room air not requiring supplemental oxygen and denies any shortness of breath no chest pain or cough.Patient denies having any nausea or vomiting, no abdominal pain and no diarrhea, the patient pain to the right elbow has decreased in intensity. Patient white count is 10.33, creatinine 0.7 blood cultures pending Objective - Vital Signs Vital signs: Vital Signs Temp 98.4 F 02/10/24 07:00 Pulse 81 02/10/24 07:00 Resp 18 02/10/24 07:00 BP 162/77 02/10/24 07:00 Pulse Ox 98 02/10/24 07:00 FiO2 Intake & Output 02/09/24 02/10/24 02/10/24 18:59 06:59 18:59 Intake Total 577 480 240 Output Total 500 Balance 77 480 240 Intake: Oral 577 480 240 Output: Urine 500 Other: Voiding Method Urinal Urinal Diaper Diaper Diaper # Voids 1 3 # Bowel Movements 1 0 - Exam GENERAL DESCRIPTION: An elderly male lying in bed in no distress RESPIRATORY SYSTEM: Unlabored breathing , decreased breath sounds at bases HEART: S1 S2 regular rate and rhythm , ABDOMEN: Soft , no tenderness EXTREMITIES: Right elbow swelling redness slightly decreased - Labs CBC & Chem 7: 02/10/24 07:52 02/10/24 07:52 Labs: Abnormal Lab Results - Last 24 Hours (Table) 02/10/24 02/10/24 02/10/24 Range/Units 07:52 07:52 08:17 WBC 10.33 H (4.50-10.00) X 10*3/uL RBC 5.65 H (4.40-5.60) X 10*6/uL MCH 26.4 L (27.0-32.0) pg MCHC 31.9 L (32.0-37.0) g/dL RDW 14.6 H (11.5-14.5) % Eosinophils # 0.36 H (0.04-0.35) X 10*3/uL Anion Gap 12.40 H (4.00-12.00) mmol/L Glucose 193 H (70-110) mg/dL POC Glucose (mg/dL) 170 H (70-110) mg/dL Alkaline Phosphatase 129 H (41-126) U/L Albumin/Globulin Ratio 1.32 L (1.60-3.17) Ratio Microbiology - Last 24 Hours (Table) 02/08/24 22:32 Blood Culture - Preliminary Blood 02/08/24 22:17 Blood Culture - Preliminary Blood Assessment and Plan (1) Cellulitis of right upper extremity Current Visit: Yes Status: Acute Code(s): L03.113 - CELLULITIS OF RIGHT UPPER LIMB SNOMED Code(s): 20469345364388287 (2) Olecranon bursitis, right elbow Current Visit: Yes Status: Acute Code(s): M70.21 - OLECRANON BURSITIS, RIGHT ELBOW SNOMED Code(s): 704220518136660 (3) Failure of outpatient treatment Current Visit: Yes Status: Acute Code(s): Z78.9 - OTHER SPECIFIED HEALTH STATUS SNOMED Code(s): 290189811 (4) MSSA (methicillin susceptible Staphylococcus aureus) infection Current Visit: Yes Status: Acute Code(s): A49.01 - METHICILLIN SUSCEP STAPH INFECTION, UNSP SITE SNOMED Code(s): 608947096 Plan: 1patient presented to hospital with right elbow pain swelling redness which is likely related to right elbow olecranon bursitis that has been drained at [facility] during his admission from 01/29 through 02/02/2024 I was able to review the culture and they have been growing MSSA patient seem to have failed outpatient oral antibiotic therapy 2-patient did have some improvement with cefazolin 2 g every 8 hour to continue may need IV antibiotic if no improvement over the weekend and no surgical drainage at the bedside question concern answered Dictation was produced using dragon dictation software. please excuse any grammatical, word or spelling errors. Time with Patient: Less than 30
[2024-02-10 17:25] LABS: Glucose,Whole Blood 187 mg/dL (70-110)
[2024-02-10] MEDS: INSULIN ASPART (NovoLOG) 100 UNIT/ML VIAL SQ SCH (18:03)
[2024-02-10] MEDS: NYSTATIN 100,000 UNIT/GM POWD 15 GM TOPICAL SCH (18:03)
[2024-02-10 20:34] LABS: Glucose,Whole Blood 261 mg/dL (70-110)
[2024-02-11 05:49] LABS: Glucose,Whole Blood 223 mg/dL (70-110)
[2024-02-11 09:33] LABS: Basophils # (A) 0.06 X 10*3/uL (0.00-0.10); Basophils % (A) 0.6 %; Eosinophils # (A) 0.34 X 10*3/uL (0.04-0.35); Eosinophils % (A) 3.7 %; HCT 40.8 % (39.6-50.0); Lymphocytes # (A) 2.66 X 10*3/uL (0.90-5.00); Lymphocytes % (A) 28.6 %; MCH 26.8 pg (27.0-32.0); MCHC 31.9 g/dL (32.0-37.0); MCV 84.1 FL (80.0-97.0); Mean Platelet Volume 11.6 FL (9.5-12.2); Monocytes # (A) 0.79 X 10*3/uL (0.20-1.00); Monocytes % (A) 8.5 %; NRBC Per 100 WBC 0 X 10*3/uL (0.00-0.01); Neutrophils # (A) 5.41 X 10*3/uL (1.80-7.70); Neutrophils % (A) 58.3 %; Platelet Count 236 X 10*3/uL (140-440); RBC 4.85 X 10*6/uL (4.40-5.60); RDW 14.8 % (11.5-14.5); WBC 9.29 X 10*3/uL (4.50-10.00)
[2024-02-11 10:52] LABS: ALT 24 U/L (10-49); AST 33 U/L (14-35); Albumin 3.5 g/dL (3.8-4.9); Alkaline Phosphatase 117 U/L (41-126); BUN/Creat Ratio 19.57 Ratio (12.00-20.00); Blood Urea Nitrogen 13.7 mg/dL (9.0-27.0); Calcium 9.2 mg/dL (8.7-10.3); Carbon Dioxide 23.4 mmol/L (21.6-31.8); Chloride 104 mmol/L (96-109); Globulin 2.5 g/dL (1.6-3.3); Glucose 249 mg/dL (70-110); Potassium 4.2 mmol/L (3.5-5.5); Sodium 138 mmol/L (135-145); Total Bilirubin <0.2 mg/dL (0.3-1.2)
--- NOTE | 2024-02-11 11:27 | P.PN ---
Subjective Progress Note Date: 02/11/24 Patient is a 68-year-old male who presents with right elbow swelling and pain. He states that he has been having difficulty with balance/weakness and recently fell. Since his fall he has had right elbow swelling and erythemahe went to [facility] (according to his ) the other day where they drained it and prescribed outpatient antibiotics. Since then the elbow has not improved so he was admitted here. He rates the pain a 6/10. He denies chest pain, shortness of breath, abdominal pain. He endorses nonbloody diarrhea since beginning the antibiotics from [facility]. WBCs 12.1, lactic acid 2.9, CRP 4.4 Afebrile, hypertensive. 02/09. Patient seen and examined lying in bed. Per infectious disease consult: Patient had right elbow olecranon bursitis drained bedside at [facility]; cultures grew MSSA but patient seems to have failed outpatient oral antibiotic therapy so he was started on IV cefazolin 2 g every 8 hours. Patient denies chest pain, shortness of breath. Continues to endorse full range of motion. Patient remains afebrile. WBCs 10.33 02/10. Patient seen lying comfortably in bed. He remains on IV cefazolin 2 g every 8 hours. He continues to endorse full range of motion. He is afebrile. Reports improved diarrhea. C.difficile is negative. WBCs 9.2. ROS reviewed. Pertinent positives and negatives discussed above, a complete review of systems was performed and all the other systems were negative. Vital signs are stable. General: No acute distress. HEENT: Head exam is unremarkable. Lungs: Bilateral breath sounds present; no rhonchi, wheezes, or rales. Heart: Rate and rhythm are regular. Abdomen: Nontender. Extremities: No edema present. Assessment/Plan: Cellulitis of the right elbow Right olecranon bursitis Continue IV cefazolin 2 g every 8 hours Pending further infectious disease recommendations Pain control Hypertension Continue hydralazine Continue hydrochlorothiazide Continue Cozaar Diabetes mellitus type 2 Continue Farxiga Insulin sliding scale Hyperlipidemia Continue Lipitor Parkinson's Continue carbidopa/levodopa discharge Continue Cymbalta Continue Seroquel Continue Lexapro Dr. Dave MD I have performed a history and physical examination and medical decision making of this patient, discussed the same with the the resident, and agree with the assessment and plan as written. I performed brief physical exam. Objective - Vital Signs Vital signs: Vital Signs Temp 98.7 F 02/11/24 07:00 Pulse 68 02/11/24 07:00 Resp 16 02/11/24 07:00 BP 174/84 02/11/24 07:00 Pulse Ox 95 02/11/24 07:00 FiO2 Intake & Output 02/10/24 02/11/24 02/11/24 18:59 06:59 18:59 Intake Total 240 118 118 Output Total 950 1500 Balance -710 -1382 118 Intake: Oral 240 118 118 Output: Urine 950 1500 Other: Voiding Method Diaper Urinal Urinal Diaper Diaper # Voids 1 # Bowel Movements 1 - Labs CBC & Chem 7: 02/11/24 02:52 02/11/24 02:52 Labs: Abnormal Lab Results - Last 24 Hours (Table) 02/10/24 02/10/24 02/10/24 Range/Units 07:52 07:52 17:24 WBC 10.33 H (4.50-10.00) X 10*3/uL RBC 5.65 H (4.40-5.60) X 10*6/uL MCH 26.4 L (27.0-32.0) pg MCHC 31.9 L (32.0-37.0) g/dL RDW 14.6 H (11.5-14.5) % Eosinophils # 0.36 H (0.04-0.35) X 10*3/uL Anion Gap 12.40 H (4.00-12.00) mmol/L Glucose 193 H (70-110) mg/dL POC Glucose (mg/dL) 187 H (70-110) mg/dL Alkaline Phosphatase 129 H (41-126) U/L Albumin/Globulin Ratio 1.32 L (1.60-3.17) Ratio 02/10/24 02/11/24 02/11/24 Range/Units 20:32 02:52 05:47 WBC (4.50-10.00) X 10*3/uL RBC (4.40-5.60) X 10*6/uL MCH 26.8 L (27.0-32.0) pg MCHC 31.9 L (32.0-37.0) g/dL RDW 14.8 H (11.5-14.5) % Eosinophils # (0.04-0.35) X 10*3/uL Anion Gap (4.00-12.00) mmol/L Glucose (70-110) mg/dL POC Glucose (mg/dL) 261 H 223 H (70-110) mg/dL Alkaline Phosphatase (41-126) U/L Albumin/Globulin Ratio (1.60-3.17) Ratio Microbiology - Last 24 Hours (Table) 02/08/24 22:32 Blood Culture - Preliminary Blood 02/08/24 22:17 Blood Culture - Preliminary Blood
[2024-02-11 12:00] LABS: Glucose,Whole Blood 354 mg/dL (70-110)
[2024-02-11 17:00] LABS: Glucose,Whole Blood 167 mg/dL (70-110)
[2024-02-11 20:39] LABS: Glucose,Whole Blood 211 mg/dL (70-110)
--- NOTE | 2024-02-11 23:01 | P.PN ---
Subjective Progress Note Date: 02/11/24 Principal diagnosis: Reason for follow-up is right elbow olecranon bursitis Patient is a 68-year-old male with a past medical history significant for diabetes mellitus hypertension hyperlipidemia reflux osteoarthritis prostate disorder in this patient apparently was recently admitted at [facility] from 01/30/2024 till 02/02/2024 with the patient has been treated for UTI he was also diagnosed with a right elbow olecranon bursitis status post bedside aspiration by the hospitalist, has not been readmitted to hospital with worsening right olecranon bursitis failing outpatient or antibiotic therapy. On today's evaluation that is 02/11/2024, the patient continues to be afebrile, the patient is on room air and breathing comfortably, the Pt denies having any chest pain or cough, the patient denies having any abdominal pain no vomiting or any diarrhea, still complaining of pain to the right elbow but no worsening. Patient white count is normalized to 9.29 creatinine 0.7 blood culture negative Objective - Vital Signs Vital signs: Vital Signs Temp 98.7 F 02/11/24 07:00 Pulse 68 02/11/24 07:00 Resp 16 02/11/24 07:00 BP 174/84 02/11/24 07:00 Pulse Ox 95 02/11/24 07:00 FiO2 Intake & Output 02/10/24 02/11/24 02/11/24 18:59 06:59 18:59 Intake Total 240 118 118 Output Total 950 1500 Balance -710 1382 118 Intake: Oral 240 118 118 Output: Urine 950 1500 Other: Voiding Method Diaper Urinal Urinal Diaper Diaper # Voids 1 # Bowel Movements 1 - Exam GENERAL DESCRIPTION: An elderly male lying in bed in no distress RESPIRATORY SYSTEM: Unlabored breathing , decreased breath sounds at bases HEART: S1 S2 regular rate and rhythm , ABDOMEN: Soft , no tenderness EXTREMITIES: Right elbow swelling redness slightly decreased - Labs CBC & Chem 7: 02/11/24 02:52 02/11/24 02:52 Labs: Abnormal Lab Results - Last 24 Hours (Table) 02/10/24 02/10/24 02/11/24 Range/Units 17:24 20:32 02:52 MCH 26.8 L (27.0-32.0) pg MCHC 31.9 L (32.0-37.0) g/dL RDW 14.8 H (11.5-14.5) % Glucose (70-110) mg/dL POC Glucose (mg/dL) 187 H 261 H (70-110) mg/dL Total Bilirubin (0.3-1.2) mg/dL Total Protein (6.2-8.2) g/dL Albumin (3.8-4.9) g/dL Albumin/Globulin Ratio (1.60-3.17) Ratio 02/11/24 02/11/24 02/11/24 Range/Units 02:52 05:47 11:59 MCH (27.0-32.0) pg MCHC (32.0-37.0) g/dL RDW (11.5-14.5) % Glucose 249 H (70-110) mg/dL POC Glucose (mg/dL) 223 H 354 H (70-110) mg/dL Total Bilirubin <0.2 L (0.3-1.2) mg/dL Total Protein 6.0 L (6.2-8.2) g/dL Albumin 3.5 L (3.8-4.9) g/dL Albumin/Globulin Ratio 1.40 L (1.60-3.17) Ratio Microbiology - Last 24 Hours (Table) 02/08/24 22:32 Blood Culture - Preliminary Blood 02/08/24 22:17 Blood Culture - Preliminary Blood Assessment and Plan (1) Cellulitis of right upper extremity Current Visit: Yes Status: Acute Code(s): L03.113 - CELLULITIS OF RIGHT UPPER LIMB SNOMED Code(s): 32790800350779234 (2) Olecranon bursitis, right elbow Current Visit: Yes Status: Acute Code(s): M70.21 - OLECRANON BURSITIS, RIGHT ELBOW SNOMED Code(s): 964089511928406 (3) Failure of outpatient treatment Current Visit: Yes Status: Acute Code(s): Z78.9 - OTHER SPECIFIED HEALTH STATUS SNOMED Code(s): 222358176 (4) MSSA (methicillin susceptible Staphylococcus aureus) infection Current Visit: Yes Status: Acute Code(s): A49.01 - METHICILLIN SUSCEP STAPH INFECTION, UNSP SITE SNOMED Code(s): 262761631 Plan: 1patient presented to hospital with right elbow pain swelling redness which is likely related to right elbow olecranon bursitis that has been drained at [facility] during his admission from 01/29 through 02/02/2024 I was able to review the culture and they have been growing MSSA patient seem to have failed outpatient oral antibiotic therapy 2-patient will likely need midline outpatient IV antibiotic therapy keeping in mind slow improvement and may benefit from surgical I&D Ortho is following the patient continue with the cefazolin Dictation was produced using [employer] dictation software. please excuse any grammatical, word or spelling errors. Time with Patient: Less than 30
[2024-02-12 06:24] LABS: Glucose,Whole Blood 187 mg/dL (70-110)
[2024-02-12 11:22] LABS: Glucose,Whole Blood 301 mg/dL (70-110)
[2024-02-12] MEDS: hydrALAZINE HCL 25 MG TAB PO STA (12:38)
--- NOTE | 2024-02-12 14:36 | P.PN ---
Subjective Progress Note Date: 02/12/24 Patient is a 68-year-old male who presents with right elbow swelling and pain. He states that he has been having difficulty with balance/weakness and recently fell. Since his fall he has had right elbow swelling and erythemahe went to [facility] (according to his ) the other day where they drained it and prescribed outpatient antibiotics. Since then the elbow has not improved so he was admitted here. He rates the pain a 6/10. He denies chest pain, shortness of breath, abdominal pain. He endorses nonbloody diarrhea since beginning the antibiotics from [facility]. WBCs 12.1, lactic acid 2.9, CRP 4.4 Afebrile, hypertensive. 02/09. Patient seen and examined lying in bed. Per infectious disease consult: Patient had right elbow olecranon bursitis drained bedside at [facility]; cultures grew MSSA but patient seems to have failed outpatient oral antibiotic therapy so he was started on IV cefazolin 2 g every 8 hours. Patient denies chest pain, shortness of breath. Continues to endorse full range of motion. Patient remains afebrile. WBCs 10.33 02/10. Patient seen lying comfortably in bed. He remains on IV cefazolin 2 g every 8 hours. He continues to endorse full range of motion. He is afebrile. Reports improved diarrhea. C.difficile is negative. WBCs 9.2. 02/12/2024 Patient is evaluated in follow-up on the medical floor with family at the bedside. He continues to report minimal to moderate pain to his elbow there continues to be some redness and swelling. Orthopedics is not planning on doing any I&D's at this time. He remains on IV Kefzol. He is noted to have a scabbed over rash on the left upper thigh and abdominal area. Review of Systems Constitutional: Denied any fatigue denied any fever. Cardio vascular: denied any chest pain, palpitations Gastrointestinal: denied any nausea, vomiting, diarrhea Pulmonary: Denied any shortness of breath cough Neurologic denied any new focal deficits All inpatient medications were reviewed and appropriate changes in these medications as dictated in the interval history and assessment and plan. PHYSICAL EXAMINATION: GENERAL: The patient is alert and oriented x3, not in any acute distress. Well developed, well nourished. HEENT: Pupils are round and equally reacting to light. EOMI. No scleral icterus. No conjunctival pallor. Normocephalic, atraumatic. No pharyngeal erythema. No thyromegaly. CARDIOVASCULAR: S1 and S2 present. No murmurs, rubs, or gallops. PULMONARY: Chest is clear to auscultation, no wheezing or crackles. ABDOMEN: Soft, nontender, nondistended, normoactive bowel sounds. No palpable organomegaly. MUSCULOSKELETAL: No joint swelling or deformity. EXTREMITIES: No cyanosis, clubbing, or pedal edema. NEUROLOGICAL: Gross neurological examination did not reveal any focal deficits. SKIN: No rashes. Scabbed rash on the left upper thigh and abdominal area. Redness and swelling to the right elbow Assessment Right olecranon bursitis and sepsis Contact dermatitis Hypertension Diabetes mellitus type 2 with hyperglycemia Hyperlipidemia Parkinson's disorder Gastroesophageal reflux disease Former smoker GI prophylaxis DVT prophylaxis Full code Plan Order hydrocortisone ointment to the left upper thigh Continue IV Kefzol Pain management Increase hydralazine to 50 mg PO BID Add levemir 10 units scheduled at bedtime. Continue accuchecks ACHS and sliding scale insulin Monitor renal function. PT/OT consultation. Return to [facility] on DC. The impression and plan of care has been dictated by Marita Bedolla Nurse Practitioner as directed. Dr. Dave MD I have performed a history and physical examination and medical decision making of this patient, discussed the same with the dictator, and agree with the dictators assessment and plan as written, documented as a scribe. Based on total visit time, I have performed more than 50% of this visit. Objective - Vital Signs Vital signs: Vital Signs Temp 99 F 02/12/24 14:15 Pulse 86 02/12/24 14:15 Resp 16 02/12/24 14:15 BP 137/73 02/12/24 14:15 Pulse Ox 94 L 02/12/24 14:15 FiO2 Intake & Output 02/11/24 02/12/24 02/12/24 18:59 06:59 18:59 Intake Total 354 462 Output Total 850 250 Balance -496 212 Intake: Oral 354 462 Output: Urine 850 250 Other: Voiding Method Diaper Diaper Diaper External Catheter External Catheter External Catheter # Voids 1 1 # Bowel Movements 1 0 2 - Labs CBC & Chem 7: 02/11/24 02:52 02/11/24 02:52 Labs: Abnormal Lab Results - Last 24 Hours (Table) 02/11/24 02/11/24 02/12/24 Range/Units 16:58 20:37 06:23 POC Glucose (mg/dL) 167 H 211 H 187 H (70-110) mg/dL 02/12/24 Range/Units 11:10 POC Glucose (mg/dL) 301 H (70-110) mg/dL Microbiology - Last 24 Hours (Table) 02/08/24 22:32 Blood Culture - Preliminary Blood 02/08/24 22:17 Blood Culture - Preliminary Blood Assessment and Plan Time with Patient: Less than 30
--- NOTE | 2024-02-12 15:41 | P.PN ---
Subjective Progress Note Date: 02/12/24 Principal diagnosis: Reason for follow-up is right elbow olecranon bursitis Patient is a 68-year-old male with a past medical history significant for diabetes mellitus hypertension hyperlipidemia reflux osteoarthritis prostate disorder in this patient apparently was recently admitted at [facility] from 01/30/2024 till 02/02/2024 with the patient has been treated for UTI he was also diagnosed with a right elbow olecranon bursitis status post bedside aspiration by the hospitalist, has not been readmitted to hospital with worsening right olecranon bursitis failing outpatient or antibiotic therapy. On today's evaluation that is 02/12/2024, Patient is afebrile patient is currently on room air and denies having any shortness of breath, the patient denies any chest pain or cough, the patient denies any nausea vomiting did not have any abdominal pain and no diarrhea, still complaining of pain to the right elbow area. Patient white count is 9.29 as of yesterday no CBC was done today blood cultures are pending Objective - Vital Signs Vital signs: Vital Signs Temp 99 F 02/12/24 14:15 Pulse 86 02/12/24 14:15 Resp 16 02/12/24 14:15 BP 137/73 02/12/24 14:15 Pulse Ox 94 L 02/12/24 14:15 FiO2 Intake & Output 02/11/24 02/12/24 02/12/24 18:59 06:59 18:59 Intake Total 354 462 Output Total 850 250 Balance -496 212 Intake: Oral 354 462 Output: Urine 850 250 Other: Voiding Method Diaper Diaper Diaper External Catheter External Catheter External Catheter # Voids 1 1 # Bowel Movements 1 0 2 - Exam GENERAL DESCRIPTION: An elderly male lying in bed in no distress RESPIRATORY SYSTEM: Unlabored breathing , decreased breath sounds at bases HEART: S1 S2 regular rate and rhythm , ABDOMEN: Soft , no tenderness EXTREMITIES: Right elbow swelling redness slightly decreased - Labs CBC & Chem 7: 02/11/24 02:52 02/11/24 02:52 Labs: Abnormal Lab Results - Last 24 Hours (Table) 02/11/24 02/11/24 02/12/24 Range/Units 16:58 20:37 06:23 POC Glucose (mg/dL) 167 H 211 H 187 H (70-110) mg/dL 02/12/24 Range/Units 11:10 POC Glucose (mg/dL) 301 H (70-110) mg/dL Microbiology - Last 24 Hours (Table) 02/08/24 22:32 Blood Culture - Preliminary Blood 02/08/24 22:17 Blood Culture - Preliminary Blood Assessment and Plan (1) Cellulitis of right upper extremity Current Visit: Yes Status: Acute Code(s): L03.113 - CELLULITIS OF RIGHT UPPER LIMB SNOMED Code(s): 84897765750179887 (2) Olecranon bursitis, right elbow Current Visit: Yes Status: Acute Code(s): M70.21 - OLECRANON BURSITIS, RIGHT ELBOW SNOMED Code(s): 153891364961914 (3) Failure of outpatient treatment Current Visit: Yes Status: Acute Code(s): Z78.9 - OTHER SPECIFIED HEALTH STATUS SNOMED Code(s): 037494808 (4) MSSA (methicillin susceptible Staphylococcus aureus) infection Current Visit: Yes Status: Acute Code(s): A49.01 - METHICILLIN SUSCEP STAPH INFECTION, UNSP SITE SNOMED Code(s): 426771416 Plan: 1patient presented to hospital with right elbow pain swelling redness which is likely related to right elbow olecranon bursitis that has been drained at [facility] during his admission from 01/29 through 02/02/2024 I was able to review the culture and they have been growing MSSA patient seem to have failed outpatient oral antibiotic therapy 2-patient did have slow improvement especially with no drainage of this infection patient will need midline and outpatient IV cefazolin plan of care discussed with the IT SECURITY CONSULTING DIRECTOR for admitting team Dictation was produced using [employer] dictation software. please excuse any grammatical, word or spelling errors. Time with Patient: Less than 30
[2024-02-12] MEDS: HYDROCORTISONE 1% OINT 28.35 GM TUBE TOPICAL PRN (16:46)
[2024-02-12 17:09] LABS: Glucose,Whole Blood 301 mg/dL (70-110)
[2024-02-12 20:13] LABS: Glucose,Whole Blood 243 mg/dL (70-110)
[2024-02-12] MEDS: INSULIN DETEMIR (LEVEMIR) 100 UNIT/ML SYR SQ SCH (20:15)
[2024-02-12] MEDS: hydrALAZINE HCL 50 MG TAB PO SCH (20:16)
[2024-02-13 05:27] LABS: Glucose,Whole Blood 222 mg/dL (70-110)
[2024-02-13 08:57] LABS: BUN/Creat Ratio 18.44 Ratio (12.00-20.00); Blood Urea Nitrogen 16.6 mg/dL (9.0-27.0); Calcium 9.4 mg/dL (8.7-10.3); Carbon Dioxide 24.3 mmol/L (21.6-31.8); Chloride 101 mmol/L (96-109); Glucose 236 mg/dL (70-110); Sodium 139 mmol/L (135-145)
--- NOTE | 2024-02-13 09:04 | CDI ---
Documentation Clarification Form Date: 02/13/2024 From: Latonya Narayanan RN CCDS Phone: [phone] Admit Date: 02/09/2024 08:43:00 AM Patient Name: Stevie Gilbert Visit Number: [id number] Discharge Date: ATTENTION: The Clinical Documentation Specialists (CDI) and [facility] Coding Staff appreciate your assistance in clarifying documentation. Please respond to the clarification below the line at the bottom and electronically sign. The CDI & [facility] Coding staff will review the response and follow-up if needed. Please note: Queries are made part of the Legal Health Record. If you have any questions, please contact the author of this message via ITS. Doctor/Provider: Naina Acosta MD: Sepsis is documented in the IM progress note 02/11 which may lack sufficient clinical evidence/support in the medical record. Additional clarification is requested. History/Risk Factors: 68-year-old male with a history of HTN, DM2, Parkinson's who presents with right elbow swelling and pain after fall and failure of outpatient antibiotics Clinical Indicators: 02/07 Triage VS: 150/79, 100.1, 89, 20, 95% room air 02/07-02/12 Temperature range: 97.7(02/08) - 100.1(02/07) 02/09 ID PN, Plan: "1patient presented to hospital with right elbow pain swelling redness which is likely related to right elbow olecranon bursitis that has been drained at [facility] during his admission from 01/29 through 02/02/2024 I was able to review the culture and they have been growing MSSA patient seem to have failed outpatient oral antibiotic therapy" 02/11 IM PN, Assessment: "Right olecranon bursitis and sepsis." 02/07, 02/09, 02/10 WBC: 12.1, 10.33, 9.29 02/07 Lactic Acid: 2.9, 1.6 02/07 C - reactive protein: 4.4 02/07 Blood Culture: No growth after 72 hours Treatment: Kefzol 2gram IV Q8 hours start 02/08 After work up and study, please clarify which diagnosis is most appropriate? [ ] Sepsis ruled out [ ] Sepsis treated prophylactically [ x ] Sepsis POA and treated [ ] Sepsis is a valid diagnosis as evidence by the following: (Please add rationale): [ ] Other, please specify [ ] Unable to determine SIRS Criteria: 2 or more of the following may indicate SIRS Temperature < 96.8F (36C) or > 101.0F (38.3C) Heart Rate > 90 bpm Respiratory Rate > 20 breaths/min or PaCO2 < 32 mmHg White Blood Cell Count > 12,000 or < 4,000 cells/mm3 or > 10% bands MTDD
[2024-02-13 11:57] LABS: Glucose,Whole Blood 314 mg/dL (70-110)
--- NOTE | 2024-02-13 13:50 | P.DS ---
Providers Date of admission: 02/09/24 08:43 Attending physician: Jose Eduardo Archer MD Consults: 02/08/24 23:12 Consult Physician Urgent Consulting Provider: Jer Gomez Consult Reason/Comments: cellulitis right upper extremity Do you want consulting provider notified?: Yes 02/09/24 13:53 Consult Physician Routine Consulting Provider: Rosie Hodges Consult Reason/Comments: right elbow cellulitis - not improved outpatient with oral antibiotcs Do you want consulting provider notified?: Yes Primary care physician: Darío Yarbrough MD Hospital Course: Hospital Course: Patient is a 68-year-old male who presents with right elbow swelling and pain. He states that he has been having difficulty with balance/weakness and recently fell. Since his fall he has had right elbow swelling and erythemahe went to [facility] (according to his ) the other day where they drained it and prescribed outpatient antibiotics. Since then the elbow has not improved so he was admitted here. He rates the pain a 6/10. He denies chest pain, shortness of breath, abdominal pain. He endorses nonbloody diarrhea since beginning the antibiotics from [facility]. WBCs 12.1, lactic acid 2.9, CRP 4.4 Afebrile, hypertensive. 02/09. Patient seen and examined lying in bed. Per infectious disease consult: Patient had right elbow olecranon bursitis drained bedside at [facility]; cultures grew MSSA but patient seems to have failed outpatient oral antibiotic therapy so he was started on IV cefazolin 2 g every 8 hours. Patient denies chest pain, shortness of breath. Continues to endorse full range of motion. Patient remains afebrile. WBCs 10.33 02/10. Patient seen lying comfortably in bed. He remains on IV cefazolin 2 g every 8 hours. He continues to endorse full range of motion. He is afebrile. Reports improved diarrhea. C.difficile is negative. WBCs 9.2. 02/11. Patient is evaluated in follow-up on the medical floor with family at e bedside. He continues to report minimal to moderate pain to his elbow there continues to be some redness and swelling. Orthopedics is not planning on doing any I&D's at this time. He remains on IV Kefzol. He is noted to have a scabbed over rash on the left upper thigh and abdominal area. 02/12. Patient seen and lying in bed comfortably. He continues to endorse minimal pain to his elbow with full range of motion. He remains on IV cefazolin. Diarrhea has continued to improve. Midline has been placed for administration of outpatient IV antibiotics. Patiently is hemodynamically stable for discharge. Final Diagnosis Cellulitis of the right elbow Right olecranon bursitis Hypertension Diabetes mellitus type 2 Hyperlipidemia Parkinson's Physical Examination: Vital signs are stable. General: No acute distress. HEENT: Head exam is unremarkable. Lungs: Bilateral breath sounds present; no rhonchi, wheezes, or rales. Heart: Rate and rhythm are regular. Abdomen: Nontender. Extremities: No edema present. Attestation I have seen and examined this patient with my resident , discussed the same with the resident/ANABEL, and agree with the dictator's assessment and plan as written Dr. Paolo cho Patient Condition at Discharge: Good Plan - Discharge Summary Discharge Rx Participant: No New Discharge Prescriptions: New ceFAZolin [Kefzol] 2 gm IVP Q8HR #30 each hydrALAZINE HCL [Apresoline] 50 mg PO BID #30 tab INSULIN ASPART (NovoLOG) [NovoLOG (formulary)] 0 unit SQ ACHS #1 each Continue Carbidopa/Levodopa [Carbidopa/Levodopa 25-100 Tab] 1 tab PO Q8H Losartan Potassium 100 mg PO DAILY QUEtiapine [SEROquel] 50 mg PO HS 0.9 % Sodium Chloride [Sodium Chloride Flush] 10 ml IV Q12H PRN PRN Reason: MAINTAIN PATENCY Nicotine 14Mg/24Hr Patch [Habitrol] 1 patch TRANSDERM DAILY metFORMIN HCL [Glucophage] 1,000 mg PO BID hydroCHLOROthiazide [Hydrodiuril] 25 mg PO DAILY DULoxetine HCL [Cymbalta] 30 mg PO DAILY Acetaminophen [Tylenol 8 Hour] 650 mg PO Q6H PRN PRN Reason: Pain Pantoprazole Sodium 40 mg PO DAILY Escitalopram [Lexapro] 10 mg PO HS Atorvastatin [Lipitor] 40 mg PO HS Empagliflozin [Jardiance] 10 mg PO DAILY 0.9 % Sodium Chloride [Sodium Chloride Flush] 10 ml IV Q12H L.acidoph,Paracasei, B.lactis [Probiotic] 1 cap PO HS Tamsulosin HCl [Flomax] 0.4 mg PO DAILY EPINEPHrine (Auto Inject) [Epipen] 0.3 mg IM ONCE PRN PRN Reason: Anaphylaxis Changed Insulin Glargine,Hum.rec.anlog [Basaglar Kwikpen U-100] 20 unit SQ DAILY #1 each Discontinued hydrALAZINE HCL 25 mg PO BID oxyCODONE HCL [oxyCODONE HCL (IR)] 5 mg PO Q6H PRN PRN Reason: Pain Naloxone HCl [Narcan] 4 mg NASAL ONCE PRN PRN Reason: OVERDOSE cefTRIAXone SODIUM [Ceftriaxone] 2 gm IV Q24H Amoxic-Pot Clav 875-125Mg [Augmentin 875-125] 1 tab PO Q12HR Doxycycline Monohydrate 100 mg PO BID Discharge Medication List Atorvastatin [Lipitor] 40 mg PO HS 01/27/22 [History] Carbidopa/Levodopa [Carbidopa/Levodopa 25-100 Tab] 1 tab PO Q8H 01/27/22 [History] Empagliflozin [Jardiance] 10 mg PO DAILY 01/27/22 [History] Escitalopram [Lexapro] 10 mg PO HS 01/27/22 [History] Losartan Potassium 100 mg PO DAILY 01/27/22 [History] Pantoprazole Sodium 40 mg PO DAILY 01/27/22 [History] 0.9 % Sodium Chloride [Sodium Chloride Flush] 10 ml IV Q12H 02/09/24 [History] 0.9 % Sodium Chloride [Sodium Chloride Flush] 10 ml IV Q12H PRN 02/09/24 [History] Acetaminophen [Tylenol 8 Hour] 650 mg PO Q6H PRN 02/09/24 [History] DULoxetine HCL [Cymbalta] 30 mg PO DAILY 02/09/24 [History] EPINEPHrine (Auto Inject) [Epipen] 0.3 mg IM ONCE PRN 02/09/24 [History] L.acidoph,Paracasei, B.lactis [Probiotic] 1 cap PO HS 02/09/24 [History] Nicotine 14Mg/24Hr Patch [Habitrol] 1 patch TRANSDERM DAILY 02/09/24 [History] QUEtiapine [SEROquel] 50 mg PO HS 02/09/24 [History] Tamsulosin HCl [Flomax] 0.4 mg PO DAILY 02/09/24 [History] hydroCHLOROthiazide [Hydrodiuril] 25 mg PO DAILY 02/09/24 [History] metFORMIN HCL [Glucophage] 1,000 mg PO BID 02/09/24 [History] INSULIN ASPART (NovoLOG) [NovoLOG (formulary)] 0 unit SQ ACHS #1 each 02/13/24 [Rx] Insulin Glargine,Hum.rec.anlog [Basaglar Kwikpen U-100] 20 unit SQ DAILY #1 each 02/13/24 [Rx] ceFAZolin [Kefzol] 2 gm IVP Q8HR #30 each 02/13/24 [Rx] hydrALAZINE HCL [Apresoline] 50 mg PO BID #30 tab 02/13/24 [Rx] Follow up Appointment(s)/Referral(s): Darío Yarbrough MD [Primary Care Provider] - 1-2 days Rosie Hodges MD [STAFF PHYSICIAN] - 1 Week Jer Gomez MD [STAFF PHYSICIAN] - 1 Week Activity/Diet/Wound Care/Special Instructions: Low-dose scale: Glucose less than 70initiate hypoglycemia orders 70-150 - 0 units 151-200 - 2 units 201-250 - 4 units 251-300 - 6 units 301-350 - 8 units 351-400 - 10 units Greater than 400 - 12 units and call provider Discharge Disposition: TRANSFER TO SNF/ECF
[2024-02-13] MEDS: HYDROmorphone 0.5 MG/0.5 ML SYRINGE IVP PRN (14:38)
[2024-02-13 15:26] VITALS: BP 115/64; PULSE 72; RESP 15; TEMP 98.7
[2024-02-13 16:56] LABS: Glucose,Whole Blood 197 mg/dL (70-110)
--- NOTE | 2024-02-14 14:24 | P.PN ---
Subjective Progress Note Date: 02/13/24 Principal diagnosis: Reason for follow-up is right elbow olecranon bursitis Patient is a 68-year-old male with a past medical history significant for diabetes mellitus hypertension hyperlipidemia reflux osteoarthritis prostate disorder in this patient apparently was recently admitted at [facility] from 01/30/2024 till 02/02/2024 with the patient has been treated for UTI he was also diagnosed with a right elbow olecranon bursitis status post bedside aspiration by the hospitalist, has not been readmitted to hospital with worsening right olecranon bursitis failing outpatient or antibiotic therapy. On today's evaluation that is 02/13/2024, Patient continues to be afebrile, the patient denies shortness of breath, chest pain or cough, the patient denies any nausea vomiting did not have any abdominal pain and no diarrhea, still complaining of pain to the right elbow area. Patient white count is 9.29 did have a creatinine 0.9 blood culture negative Objective - Vital Signs Vital signs: Vital Signs Temp 98.3 F 02/13/24 07:00 Pulse 68 02/13/24 07:00 Resp 16 02/13/24 07:00 BP 161/77 02/13/24 07:00 Pulse Ox 96 02/13/24 07:00 FiO2 Intake & Output 02/12/24 02/13/24 02/13/24 18:59 06:59 18:59 Intake Total 462 118 Output Total 1100 200 100 Balance -638 -200 18 Intake: Oral 462 118 Output: Urine 1100 200 100 Other: Voiding Method Diaper Diaper Diaper External Catheter External Catheter # Voids 1 1 # Bowel Movements 2 - Exam GENERAL DESCRIPTION: An elderly male lying in bed in no distress RESPIRATORY SYSTEM: Unlabored breathing , decreased breath sounds at bases HEART: S1 S2 regular rate and rhythm , ABDOMEN: Soft , no tenderness EXTREMITIES: Right elbow swelling redness slightly decreased - Labs CBC & Chem 7: 02/11/24 02:52 02/13/24 02:50 Labs: Abnormal Lab Results - Last 24 Hours (Table) 02/12/24 02/12/24 02/12/24 Range/Units 11:10 17:07 20:12 Anion Gap (4.00-12.00) mmol/L Glucose (70-110) mg/dL POC Glucose (mg/dL) 301 H 301 H 243 H (70-110) mg/dL 02/13/24 02/13/24 Range/Units 02:50 05:23 Anion Gap 13.70 H (4.00-12.00) mmol/L Glucose 236 H (70-110) mg/dL POC Glucose (mg/dL) 222 H (70-110) mg/dL Assessment and Plan (1) Cellulitis of right upper extremity Status: Acute Code(s): L03.113 - CELLULITIS OF RIGHT UPPER LIMB SNOMED Code(s): 22919287791126116 (2) Olecranon bursitis, right elbow Status: Acute Code(s): M70.21 - OLECRANON BURSITIS, RIGHT ELBOW SNOMED Code(s): 258759259544758 (3) Failure of outpatient treatment Status: Acute Code(s): Z78.9 - OTHER SPECIFIED HEALTH STATUS SNOMED Code(s): 934709201 (4) MSSA (methicillin susceptible Staphylococcus aureus) infection Status: Acute Code(s): A49.01 - METHICILLIN SUSCEP STAPH INFECTION, UNSP SITE SNOMED Code(s): 021586068 Plan: 1patient presented to hospital with right elbow pain swelling redness which is likely related to right elbow olecranon bursitis that has been drained at [facility] during his admission from 01/29 through 02/02/2024 I was able to review the culture and they have been growing MSSA patient seem to have failed outpatient oral antibiotic therapy 2-patient did have rather slow clinical improvement to the right elbow as it was not drained continue with the cefazolin for 10 days on discharge and close outpatient follow-up Dictation was produced using [employer] dictation software. please excuse any grammatical, word or spelling errors.
== END 2024-02-13 17:32 | DRG 872 ==
LOC: EC 20:39 → 6NMEDSUR 23:14 → OBSVTOIN 02-09 08:43 → 6NMEDSUR 02-10 19:21
PROVIDERS: ADMIT Internal Medicine; ATTEND Internal Medicine
PROC: 05HY33Z Insertion of Infusion Device into Upper Vein, Percutaneous Approach (ICD-10-PCS; principal; 2024-02-13 12:05)
DX: A41.9 Sepsis, unspecified organism (principal); L03.113 Cellulitis of right upper limb; M70.21 Olecranon bursitis, right elbow; B95.61 Methicillin susceptible Staphylococcus aureus infection as the cause of diseases classified elsewhere; G20.A1 Parkinson's disease without dyskinesia, without mention of fluctuations; I10 Essential (primary) hypertension; F32.A Depression, unspecified; E11.65 Type 2 diabetes mellitus with hyperglycemia; E78.5 Hyperlipidemia, unspecified; K21.9 Gastro-esophageal reflux disease without esophagitis; L25.9 Unspecified contact dermatitis, unspecified cause; Z72.0 Tobacco use; Z79.84 Long term (current) use of oral hypoglycemic drugs; Z79.4 Long term (current) use of insulin; Z79.899 Other long term (current) drug therapy
CPT/HCPCS: 36410; 36415; 51702; 70450; 76937; 80048; 80053; 83605; 85025; 86140; 87040; 87324; 96365; 99285